=== PATIENT | male | born 1960 | race Caucasian/White ===

== ENCOUNTER → 2017-05-20 | Outpatient (CLI) | payer BC ==
[~2017-05-20] MED LIST: ADVAIR 250-501 EACH IH; ALLEGRA PO; AMLODIPINE-BEN1 EACH PO; ASPIRIN81 M1 PO; CELEBREX PO; COMBIVENT INH14.7 GM INH; COUMADIN PO; FLEXERIL10 MG PO; FLONASE16 GM; HCTZ PO; LOTREL; METOPROLOL TAR25 MG PO; NORCO 10-325 TA1 TAB PO; PEPCID AC20 MG PO; SINGULAIR PO; ZIAC
--- NOTE | ~2017-05-20 | CT2 ---
[facility] A Service of [facility] & [facility] RADIOLOGY TEXT RESULTS PATIENT: AUREA FERRER LOCATION: [facility] : 60 UNIT #: [id number] AGE: [address]: Edy Frankel MD SEX: M ORDER DR: [id number] [facility] [address] [place], [place] [address] [id number] O MR#: [id number] Acc #: [id number] NAME: AUREA FERRER. : 1960 SEX: M STUDY DATE/TIME: 05/20/2017 9:23 UNIT: [facility] ROOM: STUDY DESCRIPTION: CT Abd and Pelv W Cont Attending Physician: Edy Frankel M.D. Referring Physician: Edy Frankel M.D. Ordering Physician: Edy Frankel M.D. Primary Care Physician: Edy Frankel M.D. MEDICAL IMAGING REPORT This report is preliminary unless electronic signature is present EXAM CT abdomen and pelvis with contrast. HISTORY 56-year-old male left-sided abdominal pain x1 month. Urinary incontinence. FINDINGS Axial images performed through the abdomen and pelvis following IV and oral contrast. Multiplanar reconstructed images reviewed at a workstation. This CT exam was performed with one or more of the following radiation dose reduction techniques: automatic exposure control, adjustment of mA and/or kV according to patient size, and iterative reconstruction. Lung bases remarkable for small amount of cystic change and fibrosis. No effusions or airspace disease. Liver and spleen unremarkable. Gallbladder demonstrates several stones, but no findings of acute cholecystitis. Pancreas and adrenal glands unremarkable. There are 2 punctate nonobstructing right renal stones. The stomach demonstrates postoperative changes from Lap-Band surgery. Small bowel, colon and appendix unremarkable. Retroperitoneum unremarkable. PELVIS: Bladder decompressed. Osseous structures remarkable for grade 1 to grade 2 spondylolisthesis L4 on L5 with a corresponding high-grade stenosis at the L4-5 level. Suspected bilateral L5 pars defects, as well as extensive multilevel facet arthropathy. Patient status post left total hip arthroplasty. Moderate size fat containing ventral hernia with the neck measuring about 2.4 cm and the hernia sac measuring about 7.4 cm. IMPRESSION 1. Uncomplicated cholelithiasis. 2. Two small nonobstructing right renal stones. 3. 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 This contributes to high-grade stenosis at this level and could be a contributing factor to the patient's urinary leakage. Dictated by... Tomasa Grimes M.D. THIS IS AN ELECTRONICALLY VERIFIED REPORT Tomasa Grimes M.D. at 05/21/2017 7:26 AM Donell TD: 05/20/2017 19:22 JOB #: [id number] MEDICAL IMAGING REPORT Page 1 of 1 COPY
[2017-05-20 08:11] LABS: POC - CREATININE 0.81 mg/dL (0.64-1.27); POC - GFR >60.0 mL/min (>60)
== END | disposition home or self-care (01) ==
LOC: CCAT 07:42
PROVIDERS: Internal Medicine
DX: R10.814 Left lower quadrant abdominal tenderness (principal); K80.20 Calculus of gallbladder without cholecystitis without obstruction; N20.0 Calculus of kidney; M51.36 Other intervertebral disc degeneration, lumbar region; M43.16 Spondylolisthesis, lumbar region; M46.96 Unspecified inflammatory spondylopathy, lumbar region
CPT/HCPCS: 74177; 82565; Q9967

== ENCOUNTER → 2017-08-03 | Outpatient (CLI) | payer BC ==
--- NOTE | ~2017-08-03 | MR113 ---
[facility] A Service of [facility] & [facility] RADIOLOGY TEXT RESULTS PATIENT: AUREA FERRER LOCATION: [facility] : 60 UNIT #: [id number] AGE: [address]: Whitney Johns SEX: M ORDER DR: [id number] [facility] [address] [place], [place] [address] [id number] O MR#: [id number] Acc #: [id number] NAME: AUREA FERRER : 1960 SEX: M STUDY DATE/TIME: 08/03/2017 16:16 UNIT: [facility] ROOM: STUDY DESCRIPTION: MR Lumbar Wo Contrast Attending Physician: Bob Flaherty Referring Physician: Bob Flaherty Ordering Physician: Bob Flaherty Primary Care Physician: Edy Frankel M.D. MRI CENTER REPORT This report is preliminary unless electronic signature is present. EXAM Lumbar spine MR no contrast 08/03/2017 CLINICAL HISTORY Low back pain with bilateral lower extremity numbness and tingling paresthesias. COMPARISON CT abdomen and pelvis 05/20/2017. FINDINGS There is a grade 1 to 2 anterolisthesis at L4-5 with bilateral pars defects. There is a levoscoliosis. There are some degenerative marrow signal changes but there is no evidence of marrow infiltration or replacement. The distal cord and conus are normal in position and appearance and the paraspinous tissues are normal. At L1-2, there is slight retrolisthesis, and discogenic change with facet arthropathy with moderate canal stenosis. There is moderate or moderate to severe right and padx-iq-[id number] or moderate left foraminal stenosis. At L2-3, there is disc and endplate change and facet arthropathy and moderate canal stenosis. There is moderate right and acxb-tz-vnjmwspa left foraminal stenosis. At L3-4, disc and endplate change and facet arthropathy cause [id number]-[id number] left side predominant canal stenosis and there is mild right and moderate or moderate to severe left foraminal stenosis, caused in part by a left lateral disc protrusion. At L4-5, there is anterolisthesis, pseudo disc bulge, facet arthropathy and severe canal stenosis. There is moderate to severe or severe right and severe left foraminal stenosis. [facility] A Service of [facility] & [facility] RADIOLOGY TEXT RESULTS PATIENT: AUREA FERRER LOCATION: [facility] : 60 UNIT #: [id number] AGE: [address]: Whitney Johns SEX: M ORDER DR: At 5-1, there is no canal stenosis and there is mild right and ycmq-hi-gwbvxgar left foraminal stenosis. IMPRESSION Multilevel degenerative canal and foraminal stenosis. In particular, there is bilateral spondylolysis and a grade 1 to 2 anterolisthesis at 4-5 with severe canal stenosis. See above for level by level details. Dictated by... Julian Frias M.D. THIS IS AN ELECTRONICALLY VERIFIED REPORT Julian Frias M.D. at 08/06/2017 7:30 AM KEN/charan TD: 08/04/2017 11:07 JOB #: [id number] MRI CENTER REPORT Page 1 of 1 COPY
== END | disposition home or self-care (01) ==
LOC: CMRI 15:40
DX: M48.06 Spinal stenosis, lumbar region (principal); M43.16 Spondylolisthesis, lumbar region; N39.498 Other specified urinary incontinence; I73.9 Peripheral vascular disease, unspecified; M47.896 Other spondylosis, lumbar region; M43.06 Spondylolysis, lumbar region
CPT/HCPCS: 72148